=== PATIENT | female | born 1975 | race Caucasian/White ===

== ENCOUNTER 2020-08-09 13:58 | Outpatient (CLI) | payer BC, SELFPAY ==
[2020-08-09 18:44] LABS: Hematocrit 39.7 % (37.0-47.0); Hemoglobin 12.9 g/dL (12.0-15.0); Mean Corpuscular HGB Conc 32.5 g/dl (32-36); Mean Corpuscular Hemoglobin 27.7 pg (26-34); Mean Corpuscular Volume 85.2 fl (80-100); Mean Platelet Volume 12.8 fl (7.4-10.4); Platelet Count Result 311 k/mm3 (150-375); Red Blood Count 4.66 M/mm3 (4.2-5.4); Red Cell Distribution Width 12.6 % (11.5-14.5); White Blood Count 5.8 K/mm3 (4.5-10.0)
[2020-08-10 06:09] LABS: Free T4 Free Thyroxine Reflex 0.68 ng/dL (0.78-2.19)
== END 2020-08-09 13:59 | disposition home or self-care (01) ==
LOC: ANHBWCLAB 14:03
PROVIDERS: PCP Obstetrics & Gynecology; Visit Provider Obstetrics & Gynecology
DX: N92.1 Excessive and frequent menstruation with irregular cycle (principal)
CPT/HCPCS: 36415; 84439; 84443; 85027